=== PATIENT | male | born 1985 | race Caucasian/White ===

== ENCOUNTER 2018-07-14 21:47 | Emergency (ER) | payer BC, OTHER ==
[~2018-07-14] VITALS: Ht 177.8 cm; Wt 70.4 kg
[2018-07-14 21:49] VITALS: BP 132/88; PULSE 114; RESP 18; Ht 177.8 cm; Wt 70.4 kg
[2018-07-15] MEDS ORDERED: IBUPROFEN 800 MG TAB PO ONE (01:00)
[2018-07-15] MEDS ORDERED: CLINDAMYCIN 300 MG INJ IM ONE (01:00)
[2018-07-15] MEDS ORDERED: LIDOCAINE 1% (MPF) 5 ML VIAL INFIL ONE (01:00)
[2018-07-15] MEDS ORDERED: HYDROCODONE/APAP (5/325) TAB PO ONE (03:30)
[2018-07-15] MEDS ORDERED: CEPH-443 PO (04:36)
[2018-07-15] MEDS ORDERED: SULF1TAB31 PO (04:36)
--- NOTE | 2018-07-15 07:09 | ERD ---
ER Documentation Chief Complaint Chief Complaint ABSCESS, LEFT SHOULDER; DRAINING HPI 33-year-old male presents for left shoulder abscess times 1 day. Patient has history of heroin injection drug use. He states that he had a I&D about 6 months ago the same area and he was subsequently admitted to the hospital for a extensive debridement of the left shoulder secondary to an abscess. Patient however states that he left AGAINST MEDICAL ADVICE without antibiotic treatment. Denies any fevers or chills. No other complaints. ROS All systems reviewed and are negative except as per history of present illness. Medications Home Meds Active Scripts Sulfamethoxazole/Trimethoprim* (Bactrim Ds* Tablet) 1 Each Tablet, 1 TAB PO BID for abscess, #20 TAB Prov:BALWINDER SESAY DO 07/15/18 Cephalexin* (Keflex*) 500 Mg Capsule, 500 MG PO TID for abscess for 10 Days, #30 CAP Prov:BALWINDER SESAY DO 07/15/18 Allergies Allergies: Coded Allergies: buprenorphine (Verified Allergy, Unknown, 07/15/18) naloxone (Verified Allergy, Unknown, 07/15/18) PMhx/Soc History of Surgery: Yes (BACK SX 2013) Anesthesia Reaction: No Hx Neurological Disorder: No Hx Respiratory Disorders: No Hx Cardiac Disorders: No Hx Psychiatric Problems: No Hx Miscellaneous Medical Probl: No Hx Alcohol Use: No Hx Substance Use: No Hx Tobacco Use: Yes Smoking Status: Former smoker Physical Exam Vitals Vital Signs Date Temp Pulse Resp B/P (MAP) Pulse Ox O2 O2 Flow FiO2 Time Delivery Rate 07/14/18 100.1 114 18 132/88 100 21:49 (103) Physical Exam Const: No acute distress Resp: Clear to auscultation bilaterally Cardio: Regular rate and rhythm, no murmurs Abd: Soft, non tender, non distended. Normal bowel sounds Skin: Large 4 cm abscess noted over the left shoulder with fluctuance and erythema noted Back: No midline or flank tenderness Ext: No cyanosis, or edema Neur: Awake and alert Psych: Normal Mood and Affect Results 24 hrs Current Medications Medications Dose Sig/[place] Start Time Status Last (Trade) Ordered Route PRN Stop Time Admin Dose Reason Admin Clindamycin 300 mg ONCE ONCE 07/15/18 DC 07/15/18 Phosphate IM 01:00 01:11 (Cleocin) 07/15/18 01:01 Lidocaine 5 ml ONCE ONCE 07/15/18 DC (Xylocaine INFIL 01:00 1% (Mpf)) 07/15/18 01:01 Ibuprofen 800 mg ONCE ONCE 07/15/18 DC 07/15/18 (Motrin) PO 01:00 01:10 07/15/18 01:01 1 tab ONCE ONCE 07/15/18 DC 07/15/18 Acetaminophen PO 03:30 03:34 / 07/15/18 03:31 Hydrocodone Bitart ([place] (5/325)) Procedures/MDM Medical Decision Making: Patient appeared well on physical exam. Examination of the left shoulder revealed an abscess. Patient given Motrin and [place] in the ER for pain. Patient given clindamycin shot. Incision and drainage was set up for the patient however he did not want to wait and decided to leave AGAINST MEDICAL ADVICE without receiving the incision and drainage. Patient advised regarding risks including possible . Patient still decided to leave AGAINST MEDICAL ADVICE without incision and drainage. Prescription(s): Patient given prescription for Bactrim and Keflex.. Patient advised to follow up with PCP in 1-2 days. Patient advised to return to ED for new or worsening symptoms. Patient stable on discharge from the ED. Disclaimer: Inadvertent spelling and grammatical errors are likely due to EHR/dictation software use and do not reflect on the overall quality of patient care. Also, please note that the electronic time recorded on this note does not necessarily reflect the actual time of the patient encounter. BALWINDER SESAY DO Jul 15, 2018 07:09
== END 2018-07-15 04:30 | disposition left against medical advice (07) ==
LOC: FTE 21:47
DX: L02.414 Cutaneous abscess of left upper limb (principal); Z87.891 Personal history of nicotine dependence
CPT/HCPCS: Z7610 ×4; 96372